=== PATIENT | male | born 1950 | race Caucasian/White ===

== ENCOUNTER 2018-11-16 20:50 | Emergency (ER) | payer OTHER ==
--- OUTSIDE RECORDS SUMMARY | 2018-11-16 20:53 | XMS REPORT | Clinical Summary ---
:1950 Author Organization [facility] Address [address] [place] [id number] Care Team Providers Name Role Phone Manuel Kirby MD Primary Care Provider Allergies Active Allergy Reactions Severity Noted Date Comments Ondansetron GI Intolerance 10/19/2015 Medications Medication Sig Dispensed Refills Start Date End Date Status ibuprofen Take 1 tablet 21 tablet 0 08/13/2018 09/12/2018 (ADVIL,MOTRIN) 600 MG (600 mg total) tablet by mouth 3 (three) times a day for 30 days. sodium,potassium,mag Take 2 Bottles 2 Bottle 0 10/15/2018 10/15/2018 sulfates (SUPREP (354 mL total) BOWEL PREP KIT) by mouth once 17.5-3.13-1.6 gram for 1 dose. recon soln polyethylene glycol Take 4,000 mL by 4000 mL 0 10/30/2018 10/30/2018 (GOLYTELY) mouth once for 1 236-22.74-6.74 -5.86 dose. gram solution Active Problems No known active problems Encounters Date Type Specialty Care Team Description 11/05/2018 Lab Lab Michael Alaniz MD 11/04/2018 Telephone Gastroenterology Michael Alaniz MD 10/15/2018 Telephone Gastroenterology Michael Alaniz MD 10/15/2018 Telephone Gastroenterology Michael Alaniz MD 10/08/2018 Telephone Gastroenterology Michael Alaniz MD 10/07/2018 Telephone Gastroenterology Michael Alaniz MD 09/24/2018 Telephone Gastroenterology Michael Alaniz MD 08/14/2018 [facility] 08/13/2018 Emergency Emergency Medicine Chris Bae, Rib contusion , MD jose carlos initial encounter (Primary Dx) 08/13/2018 Travel after 11/15/2017 Immunizations Name Administration Dates Next Due Tdap 08/13/2018 Social History Tobacco Use Types Packs/Day Years Used Date Light Tobacco Smoker Cigars Smokeless Tobacco: Never Used Alcohol Use Drinks/Week oz/Week Comments Yes 1-2 Cans of beer 1.0 - 2.0 occasional Sex Assigned at Date Recorded Not on file Job Start Date Occupation Industry Not on file Not on file Not on file Travel History Travel Start Travel End No recent travel history available. Last Filed Vital Signs Vital Sign Reading Time Taken Comments Blood Pressure 130/69 08/13/2018 3:36 PM CDT Pulse 46 08/13/2018 3:36 PM CDT Temperature 35.9 C (96.6 F) 08/13/2018 3:36 PM CDT Respiratory Rate 17 08/13/2018 3:36 PM CDT Oxygen Saturation 99% 08/13/2018 3:36 PM CDT Inhaled Oxygen Concentration - - Weight 72.6 kg (160 lb) 08/13/2018 2:21 PM CDT Height 172.7 cm (5' 8") 08/13/2018 2:21 PM CDT Body Mass Index 24.33 08/13/2018 2:21 PM CDT Plan of Treatment Health Maintenance Due Date Last Done Comments SHINGLES VACCINES (#1) 1998 65+ PNEUMOCOCCAL VACCINE (1 of 2 - PCV13) 2013 INFLUENZA VACCINE 10/10/2018 COLONOSCOPY SCREENING 11/05/2020 11/05/2018 Procedures Procedure Name Priority Date/Time Associated Diagnosis Comments SURGICAL PATHOLOGY Routine 11/05/2018 10:30 AM Results for this REQUEST CDT procedure are in the results section. XR RIBS W PA CHEST STAT 08/13/2018 2:47 PM Results for this LEFT CDT procedure are in the results section. after 11/15/2017 Results Surgical pathology request (11/05/2018 10:30 AM CDT) [facility] DEPARTMENT OF PATHOLOGY AND GENOMIC MEDICINE Surgical pathology See link below [facility] DEPARTMENT OF report for PDF Lab PATHOLOGY AND Report GENOMIC MEDICINE Result status This is Final [facility] DEPARTMENT OF Report for PATHOLOGY AND [id number] GENOMIC MEDICINE Specimen Performing Organization Address City/State/Zipcode Phone Number [facility] DEPARTMENT OF PATHOLOGY AND [address] [place] [address] GENOMIC MEDICINE XR Ribs W Pa Chest Left (08/13/2018 2:47 PM CDT) Specimen Narrative Performed At EXAMINATION:XR RIBS W PA CHEST LEFT [facility] CLINICAL HISTORY:Rib fx suspectedpost trauma, left lower rib pain after falling off a roof 5 days ago COMPARISON:April 04 IMPRESSION: No evidence of rib fracture No focal lesions present Lungs are clear Heart is nonenlarged [facility]-[id number] Procedure Note Interface, Radiology Results Incoming - 08/13/2018 3:17 PM CDT EXAMINATION: XR RIBS W PA CHEST LEFT CLINICAL HISTORY: Rib fx suspected post trauma, left lower rib pain after falling off a roof 5 days ago COMPARISON: April 04 IMPRESSION: No evidence of rib fracture No focal lesions present Lungs are clear Heart is nonenlarged [facility]-[id number] Performing Organization Address [facility] Phone Number [facility] [address] [place] [address] after 11/15/2017 Insurance Payer Benefit Plan / Subscriber ID Effective Phone Address Type Group Dates MEDICARE MEDICARE PART A xxxxxxxxxxx 2013-[place], [place] Medicare AND B ent COMMERCIAL MISC MISC COMMERCIAL xxxxxxxx 2018-[facility] Commercial ent (Home) [address] [place] [id number] Advance Directives For more information, please contact: [phone] Type Date Recorded Patient Precision Assembler Explanation Advance Directives, Living Will and Medical Power of Intelligence Operations
[2018-11-16] MEDS ORDERED: LIDOCAINE 1% MPF 5 ML VIAL ONE (21:12)
[2018-11-16] MEDS ORDERED: BUPIVACAINE 0.5% PF 10 ML VIAL ONE (21:13)
[2018-11-16] MEDS ORDERED: CEFAZOLIN SODIUM 1 GM/VIAL ONE (22:44)
[2018-11-16] MEDS ORDERED: WATER FOR INJ,STERILE 10 ML ONE (22:44)
--- NOTE | 2018-11-16 22:51 | ER ---
Nurse's Notes [facility] Name: Guerrero Cardona Jr Age: 68 yrs Sex: Male : 1950 Arrival Date: 11/16/2018 Time: 20:55 Bed 5 Private MD: Diagnosis: Laceration without foreign body of left index finger with damage to nail;Displaced fracture of distal phalanx of left index finger Presentation: 11/16 21:01 Presenting complaint: states: "I cut my fingers with a table saw yesterday. I went aj to [place] [facility] yesterday but they had a lot wait so I left" Reports that he cut his fingers at 1900 yesterday. Transition of care: patient was not received from another setting of care. Onset of symptoms was November 15, 2018 at 19:00. Risk Assessment: Do you want to hurt yourself or someone else? Patient reports no desire to harm self or others. Initial Sepsis Screen: Does the patient meet any 2 criteria? No. Patient's initial sepsis screen is negative. Does the patient have a suspected source of infection? No. Patient's initial sepsis screen is negative. Care prior to arrival: None. 21:01 Method Of Arrival: Ambulatory aj1 21:01 Acuity: PEPE 4 aj1 Triage Assessment: 21:03 General: Appears in no apparent distress. comfortable, Behavior is calm, cooperative, aj1 appropriate for age. Pain: Pain currently is 6 out of 10 on a pain scale. Neuro: Level of Consciousness is awake, alert, obeys commands. Cardiovascular: Patient's skin is warm and dry. Respiratory: Airway is patent Respiratory effort is even, unlabored, Respiratory pattern is regular, symmetrical. Historical: - Allergies: 21:03 No Known Allergies; aj1 - Home Meds: 21:03 None [Active]; aj1 - PMHx: 21:03 None; aj1 - Immunization history:: Flu vaccine is not up to date. - Social history:: Smoking status: Patient uses tobacco products, denies chronic smoking, but will smoke occasionally, cigars. - Ebola Screening: : Patient denies travel to an Ebola-affected area in the 21 days before illness onset. Screenin:24 Abuse screen: Denies threats or abuse. Denies injuries from another. Nutritional tl1 screening: No deficits noted. Tuberculosis screening: No symptoms or risk factors identified. Fall Risk None identified. Assessment: 21:22 General: Appears in no apparent distress. Behavior is calm, cooperative, appropriate tl1 for age. Pain: Complains of pain in dorsal aspect of distal phalanx of left index finger, dorsal aspect of distal phalanx of left middle finger and left index fingernail. Neuro: Level of Consciousness is awake, alert, obeys commands, Oriented to person, place, time, situation. Cardiovascular: Denies chest pain. Respiratory: Airway is patent Trachea midline Respiratory effort is even, unlabored, Respiratory pattern is regular, symmetrical, Breath sounds are clear bilaterally. GI: No signs and/or symptoms were reported involving the gastrointestinal system. : No signs and/or symptoms were reported regarding the genitourinary system. EENT: No signs and/or symptoms were reported regarding the EENT system. Injury Description: Laceration sustained to dorsal aspect of distal phalanx of left index finger, dorsal aspect of distal phalanx of left middle finger, palmar aspect of distal phalanx of left middle finger, palmar aspect of distal phalanx of left index finger, left index fingernail and left middle fingernail was sustained 1 day ago. moderate bleeding noted at this time. Vital Signs: 21:03 BP 116 / 75; Pulse 67; Resp 16; Temp 97.6; Pulse Ox 96% on R/A; Weight 69.85 kg (R); aj1 Height 5 ft. 8 in. (172.72 cm) (R); Pain 6/10; 23:03 BP 126 / 71; Pulse 61; Resp 17; Temp 97.8; Pulse Ox 100% ; Pain 0/10; tl1 21:03 Body Mass Index 23.42 (69.85 kg, 172.72 cm) aj1 ED Course: 20:55 Patient arrived in ED. mr 21:03 Triage completed. aj1 21:03 Arm band placed on Patient placed in an exam room. aj1 21:03 Patient has correct armband on for positive identification. Bed in low position. Call tl1 light in reach. Side rails up X 1. 21:04 April Sparrow FNP is [facility]. ut 21:04 Jose Moreno MD is Attending Physician. ut 21:52 Wound care: to laceration located on left middle fingernail and left index fingernail tl1 was soaked in Betadine solution, dressed with Vaseline gauze. 22:14 Alyssa Mcdonald, RN is Primary Nurse. tl1 22:25 Hand Left 3 View XRAY In Process Unspecified. EDMS 22:50 Farzad Deluca MD is Referral Physician. nh 23:02 No provider procedures requiring assistance completed. Patient did not have IV access tl1 during this emergency room visit. 23:02 Aluminum finger splint applied to left index fingernail. tl1 Administered Medications: 21:15 Drug: Lidocaine (1 %) 1 vials {Note: placed at bedside for POWER AND RECOVERY SUPERVISOR to adminiter.} Volume: 5 ak1 ml; Route: Infiltration; 23:04 Follow up: Response: No adverse reaction; Marked relief of symptoms; Pain is decreased tl1 21:16 Drug: Marcaine (0.5 %) 1 vials {Note: placed at bedside for POWER AND RECOVERY SUPERVISOR to adminiter.} Volume: ak1 10 ml; Route: Infiltration; 23:04 Follow up: Response: No adverse reaction; Marked relief of symptoms; Pain is decreased tl1 22:47 Drug: Ancef 1 grams Route: IM; Site: right gluteus; tl1 23:04 Follow up: Response: No adverse reaction; No change in condition tl1 23:15 Drug: [place] 10 mg-325 mg 1 tabs {Note: RASS 1.} Route: PO; tl1 23:16 Follow up: Response: No adverse reaction; Medication administered at discharge. tl1 Outcome: 22:51 Discharge ordered by MD. nh 23:15 Discharged to home ambulatory, with family. tl1 23:15 Condition: stable 23:15 Discharge instructions given to patient, family, Instructed on discharge instructions, follow up and referral plans. no driving heavy equipment, Demonstrated understanding of instructions, follow-up care, medications, Prescriptions given X 3. 23:16 Patient left the ED. tl1 Signatures: Dispatcher [employer] EDMS Lorraine Henry RN RN aj1 April Sparrow, PLAYGROUND DIRECTOR PLAYGROUND DIRECTOR xiomara ChavezaEileen mr Alyssa Mcdonald, RN RN tl1 Oneyda Farr RN RN ak1
--- NOTE | 2018-11-16 22:52 | EDPHYS ---
Physician Documentation [facility] Name: Guerrero Cardona Jr Age: 68 yrs Sex: Male : 1950 Arrival Date: 11/16/2018 Time: 20:55 Bed 5 Private MD: ED Physician Jose Moreno HPI: 11/16 22:45 This 68 yrs old Male presents to ER via Ambulatory with complaints of finger nh laceration. 22:45 Onset: The symptoms/episode began/occurred acutely, yesterday. Associated signs and nh symptoms: The patient has no apparent associated signs or symptoms. The patient has not experienced similar symptoms in the past. The patient has not recently seen a physician. Patient went to [facility] ER yesterday, but told there was a 5 hour wait, so he decided to wait until today. Patient cut first and second digit with a table saw. Historical: - Allergies: 21:03 No Known Allergies; aj1 - Home Meds: 21:03 None [Active]; aj1 - PMHx: 21:03 None; aj1 - Immunization history:: Flu vaccine is not up to date. - Social history:: Smoking status: Patient uses tobacco products, denies chronic smoking, but will smoke occasionally, cigars. - Ebola Screening: : Patient denies travel to an Ebola-affected area in the 21 days before illness onset. ROS: 22:45 Constitutional: Negative for fever, chills, and weight loss, Eyes: Negative for injury, nh pain, redness, and discharge, ENT: Negative for injury, pain, and discharge, Neck: Negative for injury, pain, and swelling, Cardiovascular: Negative for chest pain, palpitations, and edema, Respiratory: Negative for shortness of breath, cough, wheezing, and pleuritic chest pain, Abdomen/GI: Negative for abdominal pain, nausea, vomiting, diarrhea, and constipation, Back: Negative for injury and pain, : Negative for injury, bleeding, discharge, and swelling, Neuro: Negative for headache, weakness, numbness, tingling, and seizure. 22:45 MS/extremity: Positive for laceration, pain, swelling, tenderness, of the left index fingernail. Exam: 22:45 Constitutional: This is a well developed, well nourished patient who is awake, alert, nh and in no acute distress. Head/Face: Normocephalic, atraumatic. Eyes: Pupils equal round and reactive to light, extra-ocular motions intact. Lids and lashes normal. Conjunctiva and sclera are non-icteric and not injected. Cornea within normal limits. Periorbital areas with no swelling, redness, or edema. ENT: Nares patent. No nasal discharge, no septal abnormalities noted. Tympanic membranes are normal and external auditory canals are clear. Oropharynx with no redness, swelling, or masses, exudates, or evidence of obstruction, uvula midline. Mucous membranes moist. Neck: Trachea midline, no thyromegaly or masses palpated, and no cervical lymphadenopathy. Supple, full range of motion without nuchal rigidity, or vertebral point tenderness. No Meningismus. Chest/axilla: Normal chest wall appearance and motion. Nontender with no deformity. No lesions are appreciated. Cardiovascular: Regular rate and rhythm with a normal S1 and S2. No gallops, murmurs, or rubs. Normal PMI, no JVD. No pulse deficits. Respiratory: Lungs have equal breath sounds bilaterally, clear to auscultation and percussion. No rales, rhonchi or wheezes noted. No increased work of breathing, no retractions or nasal flaring. Abdomen/GI: Soft, non-tender, with normal bowel sounds. No distension or tympany. No guarding or rebound. No evidence of tenderness throughout. Back: No spinal tenderness. No costovertebral tenderness. Full range of motion. Neuro: Awake and alert, GCS 15, oriented to person, place, time, and situation. Cranial nerves II-XII grossly intact. Motor strength 5/5 in all extremities. Sensory grossly intact. Cerebellar exam normal. Normal gait. 22:45 Skin: injury, laceration(s), that can be described as contaminated, irregular, jagged, through and through, Complex laceration involving nailbed to right index finger - distal to the DIP. Also small laceration to right tip of second finger. Patient unable to bend index finger at DIP. Vital Signs: 21:03 BP 116 / 75; Pulse 67; Resp 16; Temp 97.6; Pulse Ox 96% on R/A; Weight 69.85 kg (R); aj1 Height 5 ft. 8 in. (172.72 cm) (R); Pain 6/10; 23:03 BP 126 / 71; Pulse 61; Resp 17; Temp 97.8; Pulse Ox 100% ; Pain 0/10; tl1 21:03 Body Mass Index 23.42 (69.85 kg, 172.72 cm) aj1 Procedures: 22:45 Splinting: Splint applied to left index finger using finger splint, applied by nurse. nh Examined by me, post splint application: neurovascular intact, 2+ distal pulses palpable, brisk capillary refill noted, Patient tolerated well. MDM: 21:04 Patient medically screened. al 22:45 Data reviewed: vital signs, nurses notes, radiologic studies, I have discussed the al patient's presentation/case with the attending Emergency Department Physician; and as a result, I will discharge patient. Counseling: I had a detailed discussion with the patient and/or guardian regarding: the historical points, exam findings, and any diagnostic results supporting the discharge/admit diagnosis, radiology results, the need for outpatient follow up, to return to the emergency department if symptoms worsen or persist or if there are any questions or concerns that arise at home. Physician consultation: Farzad Deluca MD was called at 22:49, was contacted at 22:49, and will see patient in office, in 2-3 days. 11/16 21:54 Order name: Hand Left 3 View XRAY al 11/16 23:15 Order name: Finger Splint; Complete Time: 23:15 tl1 Administered Medications: 21:15 Drug: Lidocaine (1 %) 1 vials {Note: placed at bedside for CARDBOARD INSERTER to adminiter.} Volume: 5 ak1 ml; Route: Infiltration; 23:04 Follow up: Response: No adverse reaction; Marked relief of symptoms; Pain is decreased tl1 21:16 Drug: Marcaine (0.5 %) 1 vials {Note: placed at bedside for CARDBOARD INSERTER to adminiter.} Volume: ak1 10 ml; Route: Infiltration; 23:04 Follow up: Response: No adverse reaction; Marked relief of symptoms; Pain is decreased tl1 22:47 Drug: Ancef 1 grams Route: IM; Site: right gluteus; tl1 23:04 Follow up: Response: No adverse reaction; No change in condition tl1 23:15 Drug: [place] 10 mg-325 mg 1 tabs {Note: RASS 1.} Route: PO; tl1 23:16 Follow up: Response: No adverse reaction; Medication administered at discharge. tl1 Disposition: 11/16/18 22:51 Discharged to Home. Impression: Laceration without foreign body of left index finger with damage to nail, Displaced fracture of distal phalanx of left index finger. - Condition is Stable. - Discharge Instructions: Finger Fracture, Laceration Care, Adult. - Prescriptions for Keflex 500 mg Oral Capsule - take 1 capsule by ORAL route every 6 hours for 10 days; 40 capsule. Tylenol- Codeine #3 300-30 mg Oral Tablet - take 2 tablets by ORAL route every 6 hours As needed; 30 tablet. Bactrim DS 800- 160 mg Oral Tablet - take 1 tablet by ORAL route every 12 hours for 10 days; 20 tablet. - Medication Reconciliation Form, Thank You Letter, Antibiotic Education, Prescription Opioid Use form. - Follow up: Farzad Deluca MD; When: 11/18/2018; Reason: Recheck today's complaints. - Problem is new. - Symptoms are unchanged. Signatures: Dispatcher [employer] EDCT Lorraine Henry RN RN aj1 April Sparrow, FINANCE EFFECTIVENESS MANAGER FINANCE EFFECTIVENESS MANAGER al Alyssa Mcdonald RN RN tl1 Oneyda Farr RN RN ak1 Corrections: (The following items were deleted from the chart) 22:51 22:51 11/16/2018 22:51 Discharged to Home. Impression: Laceration without foreign body nh of left index finger with damage to nail. Condition is Stable. Forms are Medication Reconciliation Form, Thank You Letter, Antibiotic Education, Prescription Opioid Use. Follow up: Farzad Deluca; When: 11/18/2018; Reason: Recheck today's complaints. Problem is new. Symptoms are unchanged. al 23:16 22:51 11/16/2018 22:51 Discharged to Home. Impression: Laceration without foreign body tl1 of left index finger with damage to nail; Displaced fracture of distal phalanx of left index finger. Condition is Stable. Forms are Medication Reconciliation Form, Thank You Letter, Antibiotic Education, Prescription Opioid Use. Follow up: Farzad Deluca; When: 11/18/2018; Reason: Recheck today's complaints. Problem is new. Symptoms are unchanged. al
[2018-11-16] MEDS ORDERED: HYDROCODONE/APAP 10/325 TAB ONE (23:08)
[2018-11-17 06:14] VITALS: BP 126/71; TEMP 97.8; O2SAT 100
--- NOTE | 2018-11-17 12:37 | RAD REPORT ---
EXAM DESCRIPTION: RAD - Hand Left 3 View - 11/16/2018 10:27 pm CLINICAL HISTORY: PAIN COMPARISON: No comparisons FINDINGS: Laceration with comminuted fracture of the distal phalanx of the second finger noted.
== END 2018-11-16 23:16 | disposition home or self-care (01) ==
LOC: ER 20:50
DX: S61.311A Laceration without foreign body of left index finger with damage to nail, initial encounter (principal); W31.2XXA Contact with powered woodworking and forming machines, initial encounter; Y93.89 Activity, other specified; Y92.9 Unspecified place or not applicable; Z72.0 Tobacco use
CPT/HCPCS: 73130; 96372; 99284; J0690

== ENCOUNTER 2019-07-09 22:41 | Emergency (ER) | payer OTHER ==
--- NOTE | 2019-07-10 00:08 | ER ---
Nurse's Notes [facility] Name: Guerrero Cardona Jr Age: 69 yrs Sex: Male : 1950 Arrival Date: 07/09/2019 Time: 22:44 Bed 2 Private MD: Diagnosis: Fall on and from ladder;Unspecified injury of head;Contusion of right elbow Presentation: 07/08 22:53 Chief complaint: Patient states: Fell off 8 foot ladder 3 hours [employer]. Landed on head. ll1 Reports hematoma to right top of head. Denies LOC. No blood thinners. Coronavirus screen: Proceed with normal triage. Patient denies a cough. Patient denies shortness of breath or difficulty breathing. Patient denies measured and/or subjective temperature greater than 100.4F prior to today's visit. Patient denies travel on a cruise ship or to a country the [facility] currently lists as an affected area. Patient denies contact with known and/or suspected case of COVID-19. Ebola Screen: Patient denies travel to an Ebola-affected area in the 21 days before illness onset. Initial Sepsis Screen: Does the patient meet any 2 criteria? No. Patient's initial sepsis screen is negative. Does the patient have a suspected source of infection? No. Patient's initial sepsis screen is negative. Risk Assessment: Do you want to hurt yourself or someone else? Patient reports no desire to harm self or others. Onset of symptoms was July 09, 2019. 22:53 Method Of Arrival: Ambulatory ll1 22:53 Acuity: PEPE 3 ll1 23:00 Care prior to arrival: None. Mechanism of Injury: Fall from standing position. Trauma ea event details: Injury occurred in the [facility]. Trauma Activation: Not Applicable Physician: ED Physician; Name: ; Notified At: ; Arrived At: Physician: General Surgeon; Name: ; Notified At: ; Arrived At: Physician: Radiology; Name: ; Notified At: ; Arrived At: Physician: Respiratory; Name: ; Notified At: ; Arrived At: Physician: Lab; Name: ; Notified At: ; Arrived At: Historical: - Allergies: 22:55 No Known Allergies; ll1 - PMHx: 22:55 None; ll1 - PSHx: 22:55 Knee surgery; rotator cuff repair; ll1 - Social history:: Smoking status: Patient reports the use of cigarette tobacco products, cigars, Patient uses alcohol, weekly. admits to "couple of beers" a day. Patient/guardian denies using street drugs. - Immunization history: Last tetanus immunization: - up to date. Screenin:58 Abuse screen: Denies threats or abuse. Nutritional screening: No deficits noted. ea Tuberculosis screening: No symptoms or risk factors identified. Fall Risk None identified. Primary Survey: 22:58 NO uncontrolled hemorrhage observed. Breathing/Chest: Respiratory pattern: regular, ea Respiratory effort: spontaneous, unlabored. Circulation: Skin color: pink. Disability Alert. Exposure/Environment: Obvious injury(ies) are noted at this time: hematoma to right side of head. 23:31 Reassessment Airway Airway Patent Breathing/Chest Respiratory pattern Regular ea Respiratory effort Spontaneous Unlabored. Assessment: 22:57 General: Appears in no apparent distress. Behavior is calm, cooperative, appropriate ea for age. Pain: Complains of pain in right side of the back of head. Neuro: Level of Consciousness is awake, alert, obeys commands, Oriented to person, place, time, situation. Respiratory: Airway is patent Respiratory effort is even, unlabored, Respiratory pattern is regular, symmetrical. Injury Description:. Injury Description: Bruise sustained to right side of the back of head. 23:46 Reassessment: Patient and/or family updated on plan of care and expected duration. Pain ea level reassessed. Patient is alert, oriented x 3, equal unlabored respirations, skin warm/dry/pink. Vital Signs: 22:53 BP 124 / 87; Pulse 66; Resp 18; Temp 97.9; Pulse Ox 97% ; Pain 0/10; ll1 [place] Coma Score: 22:53 Eye Response: spontaneous(4). Verbal Response: oriented(5). Motor Response: obeys ea commands(6). Total: 15. Trauma Score (Adult): 22:53 Eye Response: spontaneous(1); Verbal Response: oriented(1); Motor Response: obeys ea commands(2); Systolic BP: > 89 mm Hg(4); Respiratory Rate: 10 to 29 per min(4); Brenda Score: 15; Trauma Score: 12 ED Course: 22:44 Patient arrived in ED. cf2 22:48 Julian[facility] Lars[facility]C [facility]. snw 22:48 Joey Stanford MD is Attending Physician. snw 22:54 Brenda Loving, RN is Primary Nurse. ea 22:55 Triage completed. ll1 22:56 Arm band placed on Patient placed in an exam room, on a stretcher. ll1 22:59 Patient has correct armband on for positive identification. Bed in low position. Call ea light in reach. 22:59 Patient maintains SpO2 saturation greater than 95% on room air. Thermoregulation: warm ea blanket given to patient. 23:27 CT Head C Spine In Process Unspecified. EDMS 07/09 00:19 No provider procedures requiring assistance completed. Patient did not have IV access ea during this emergency room visit. 00:27 Elbow Right 3 View XRAY In Process Unspecified. EDMS Administered Medications: No medications were administered Intake: 00:20 PO: 0ml; Total: 0ml. ea Outcome: 00:06 Discharge ordered by MD. snw 00:19 Discharged to home ambulatory. ea 00:19 Condition: stable 00:19 Discharge instructions given to patient, Instructed on discharge instructions, follow up and referral plans. medication usage, Demonstrated understanding of instructions, follow-up care, medications, Prescriptions given X 2. 00:20 Patient's length of stay was not longer than 2 hours. ea 00:20 Patient left the ED. ea Signatures: Dispatcher [employer] EDDC Juliann Larsen FNP-C WARRANTY COORDINATOR-Csnw Brenda Loving, RN RN Leonel Baptiste cf2 Merlene Melgoza RN RN ll1 Corrections: (The following items were deleted from the chart) 07/08 22:57 22:53 Chief complaint: Patient states: Fell off 8 foot ladder 3 hours [employer]. Landed on ll1 head. Reports hematoma to right top of head. Denies LOC. ll1
--- NOTE | 2019-07-10 00:09 | EDPHYS ---
Physician Documentation [facility] Name: Guerrero Cardona Jr Age: 69 yrs Sex: Male : 1950 Arrival Date: 07/09/2019 Time: 22:44 Bed 2 Private MD: ED Physician Joey Satnford HPI: 07/08 22:54 This 69 yrs old Male presents to ER via Unassigned with complaints of Fall snw Injury, Head Injury With LOC-Adult. 22:54 Details of fall: The patient fell from a height, from a ladder, approximately 8 feet, snw freefall to occiput. Onset: The symptoms/episode began/occurred suddenly, 3 hour(s) ago. Associated injuries: The patient sustained injury to the head. Severity of symptoms: At their worst the symptoms were moderate, in the emergency department the symptoms have improved. The patient has not experienced similar symptoms in the past. yearly physical. denies LOC, denies vomiting. Historical: - Allergies: 22:55 No Known Allergies; ll1 - PMHx: 22:55 None; ll1 - PSHx: 22:55 Knee surgery; rotator cuff repair; ll1 - Social history:: Smoking status: Patient reports the use of cigarette tobacco products, cigars, Patient uses alcohol, weekly. admits to "couple of beers" a day. Patient/guardian denies using street drugs. - Immunization history: Last tetanus immunization: - up to date. ROS: 22:53 Constitutional: Negative for fever, chills, and weight loss, Eyes: Negative for injury, snw pain, redness, and discharge, ENT: Negative for injury, pain, and discharge, Neck: Negative for injury, pain, and swelling, Cardiovascular: Negative for chest pain, palpitations, and edema, Respiratory: Negative for shortness of breath, cough, wheezing, and pleuritic chest pain, Abdomen/GI: Negative for abdominal pain, nausea, vomiting, diarrhea, and constipation, Back: Negative for injury and pain, : Negative for injury, bleeding, discharge, and swelling, MS/Extremity: Negative for injury and deformity, Skin: Negative for injury, rash, and discoloration. 22:53 Neuro: Positive for dizziness, of the right side of the back of head. Exam: 22:53 Constitutional: This is a well developed, well nourished patient who is awake, alert, snw and in no acute distress. Eyes: Pupils equal round and reactive to light, extra-ocular motions intact. Lids and lashes normal. Conjunctiva and sclera are non-icteric and not injected. Cornea within normal limits. Periorbital areas with no swelling, redness, or edema. ENT: Nares patent. No nasal discharge, no septal abnormalities noted. Tympanic membranes are normal and external auditory canals are clear. Oropharynx with no redness, swelling, or masses, exudates, or evidence of obstruction, uvula midline. Mucous membranes moist. Neck: Trachea midline, no thyromegaly or masses palpated, and no cervical lymphadenopathy. Supple, full range of motion without nuchal rigidity, or vertebral point tenderness. No Meningismus. Chest/axilla: Normal chest wall appearance and motion. Nontender with no deformity. No lesions are appreciated. Cardiovascular: Regular rate and rhythm with a normal S1 and S2. No gallops, murmurs, or rubs. Normal PMI, no JVD. No pulse deficits. Respiratory: Lungs have equal breath sounds bilaterally, clear to auscultation and percussion. No rales, rhonchi or wheezes noted. No increased work of breathing, no retractions or nasal flaring. Abdomen/GI: Soft, non-tender, with normal bowel sounds. No distension or tympany. No guarding or rebound. No evidence of tenderness throughout. Back: No spinal tenderness. No costovertebral tenderness. Full range of motion. Skin: Warm, dry with normal turgor. Normal color with no rashes, no lesions, and no evidence of cellulitis. MS/ Extremity: Pulses equal, no cyanosis. Neurovascular intact. Full, normal range of motion. Neuro: Awake and alert, GCS 15, oriented to person, place, time, and situation. Cranial nerves II-XII grossly intact. Motor strength 5/5 in all extremities. Sensory grossly intact. Cerebellar exam normal. Normal gait. Psych: Awake, alert, with orientation to person, place and time. Behavior, mood, and affect are within normal limits. 22:53 Head/face: Noted is hematoma, swelling, that is moderate, of the right side of the back of head. Vital Signs: 22:53 BP 124 / 87; Pulse 66; Resp 18; Temp 97.9; Pulse Ox 97% ; Pain 0/10; ll1 [place] Coma Score: 22:53 Eye Response: spontaneous(4). Verbal Response: oriented(5). Motor Response: obeys ea commands(6). Total: 15. Trauma Score (Adult): 22:53 Eye Response: spontaneous(1); Verbal Response: oriented(1); Motor Response: obeys ea commands(2); Systolic BP: > 89 mm Hg(4); Respiratory Rate: 10 to 29 per min(4); Brenda Score: 15; Trauma Score: 12 MDM: 23:06 Patient medically screened. snw 07/09 00:09 Data reviewed: vital signs, nurses notes. Data interpreted: Pulse oximetry: on room air snw is 97 %. Interpretation: normal. Counseling: I had a detailed discussion with the patient and/or guardian regarding: the historical points, exam findings, and any diagnostic results supporting the discharge/admit diagnosis, radiology results, the need for outpatient follow up, to return to the emergency department if symptoms worsen or persist or if there are any questions or concerns that arise at home. Special discussion: I have referred the patient to see his PCP for further evaluation of high blood pressure. Based on the patient's history, exam and DX evaluation, there is no indication for emergent intervention or inpatient [place]. It is understood by the patient/guardian that if the SXs persist or worsen they need to return immediately for re-evaluation. Based on the history and exam findings, there is no indication for further emergent testing or inpatient evaluation. I discussed with the patient/guardian the need to see the primary care provider for further evaluation of the symptoms. 07/08 22:53 Order name: CT Head C Spine snw 07/08 23:26 Order name: Elbow Right 3 View XRAY snw Administered Medications: No medications were administered Disposition: 06:42 Co-signature as Attending Physician, Joey Stanford MD I agree with the assessment and tw4 plan of care. Disposition: 07/10/19 00:06 Discharged to Home. Impression: Fall on and from ladder, Unspecified injury of head, Contusion of right elbow. - Condition is Stable. - Discharge Instructions: Head Injury, Adult, Fall Prevention in the Home, Elbow Contusion, [id number]. - Prescriptions for Diclofenac Sodium 75 mg Oral Tablet, Delayed Release (E.C.) - take 1 tablet by ORAL route 2 times per day; 30 tablet. orphenadrine citrate 100 mg Oral Tablet Sustained Release - take 1 tablet by ORAL route 2 times per day As needed; 20 tablet. - Work release form, Medication Reconciliation Form, Thank You Letter, Antibiotic Education, Prescription Opioid Use form. - Follow up: Emergency Department; When: As needed; Reason: Worsening of condition. Follow up: Private Physician; When: 2 - 3 days; Reason: Recheck today's complaints, Continuance of care, Re-evaluation by your physician. - Problem is new. - Symptoms have improved. Signatures: Dispatcher [employer] EDMS Juliann Larsen, JAY-C INDUSTRIAL ENGINEERING DIRECTOR-Csnw Brenda Loving, RN RN Joey Lake MD MD tw4 Merlene Melgoza RN RN ll1 Corrections: (The following items were deleted from the chart) 00:20 00:06 07/10/2019 00:06 Discharged to Home. Impression: Fall on and from ladder; ea Unspecified injury of head; Contusion of right elbow. Condition is Stable. Forms are Medication Reconciliation Form, Thank You Letter, Antibiotic Education, Prescription Opioid Use. Follow up: Emergency Department; When: As needed; Reason: Worsening of condition. Follow up: Private Physician; When: 2 - 3 days; Reason: Recheck today's complaints, Continuance of care, Re-evaluation by your physician. Problem is new. Symptoms have improved. snw
--- NOTE | 2019-07-10 00:11 | RAD REPORT ---
EXAM DESCRIPTION: RAD - Elbow Right 3 View - 07/10/2019 12:02 am CLINICAL HISTORY: Right elbow pain status post injury FINDINGS: No fracture or dislocation is seen. Two small radiopaque densities lie within medial soft tissues. Largest measures 1 millimeter
--- NOTE | 2019-07-10 11:43 | RAD REPORT ---
EXAM DESCRIPTION: CT - Head C Spine Mpr Wo Con - 07/10/2019 4:59 am CLINICAL HISTORY: SMASH INJURY COMPARISON: None. TECHNIQUE: CT Head and Cervical spine WO contrast on 07/09/2019 10:53 PM CDT This exam was performed according to our departmental dose-optimization program, which includes autom ated exposure control, adjustment of the mA and/or kV according to patient size and/or use of iterati ve reconstruction technique. FINDINGS: Brain: There is no acute hemorrhage, mass effect or midline shift. Scott-white differentiat ion is preserved. There is no hydrocephalus. There is no significant volume loss for age. There is a moderate right parietal scalp contusion. The calvarium is intact. Orbits and globes are unremarkable. The paranasal sinuses are clear. Mastoid air cells are clear. Cervical Spine: There is no acute fracture. Alignment is anatomic. There is moderate diffuse facet ar thritis. There is mild narrowing of the C4-5 disc. Vertebral body heights are preserved. Soft tissues are unre markable. IMPRESSION: No acute fracture or intracranial hemorrhage. Electronically signed by: Adair Bell MD 07/09/2019 11:49 PM CDT Due to temporary technical issues with the PACS/Fluency reporting system, reports are being signed by the in house radiologist as a courtesy to ensure prompt reporting. The interpreting radiologist is f cosmoly responsible for the content of the report.
== END 2019-07-10 00:20 | disposition home or self-care (01) ==
LOC: ER 22:41
DX: S09.90XA Unspecified injury of head, initial encounter (principal); S50.01XA Contusion of right elbow, initial encounter; W11.XXXA Fall on and from ladder, initial encounter; Y93.9 Activity, unspecified; Y92.9 Unspecified place or not applicable; Z72.0 Tobacco use
CPT/HCPCS: 70450; 72125; 99284

== ENCOUNTER 2019-08-07 16:51 | Emergency (ER) | payer OTHER ==
[2019-08-07] MEDS ORDERED: ONDANSETRON 4 MG/2 ML VIAL ONE (17:05)
[2019-08-07] MEDS ORDERED: MORPHINE 4 MG/ML SYR ONE ×2 (17:05→18:48)
[2019-08-07 17:13] LABS: Absolute Lymphocytes (CBC) 0.6 K/uL (0.7-4.9); Basophils % 0.4 % (0-1.3); Hematocrit 49.3 % (39.6-49.0); MPV 8.6 fL (7.6-11.3); RBC Red Blood Cell Count 5.23 M/uL (4.33-5.43)
[2019-08-07 17:42] LABS: ALT/SGPT 31 U/L (12-78); AST/SGOT 33 U/L (15-37); Albumin 4.4 g/dL (3.4-5.0); Alkaline Phosphatase 62 U/L (45-117); BUN Blood Urea Nitrogen 31 mg/dL (7-18); Bicarbonate 27 mmol/L (21-32); Bilirubin Direct 0.3 mg/dL (0-0.2); Bilirubin Total 1.3 mg/dL (0.2-1.0); Glucose Level 132 mg/dL (74-106); Lipase 112 U/L (73-393); Potassium 4.4 mmol/L (3.5-5.1); Protein, Total 8.4 g/dL (6.4-8.2); Sodium Level 139 mmol/L (136-145); Troponin (Emerg Dept Use Only) < 0.02 ng/mL (0.0-0.045)
--- NOTE | 2019-08-07 18:42 | RAD REPORT ---
EXAM DESCRIPTION: CT - Abdomen Pelvis W Contrast - 08/07/2019 6:20 pm CLINICAL HISTORY: abdominal pain COMPARISON: No comparisons TECHNIQUE: Biphasic, helical CT imaging of the abdomen and pelvis was performed following 100 ml non -ionic IV contrast. No oral contrast given. All CT scans are performed using dose optimization technique as appropriate and may include automated exposure control or mA/KV adjustment according to patient size. FINDINGS: No suspicious findings in the lung bases. Liver shows no suspicious finding. A small 10 millimeter subcapsular lateral right lobe lesion is pro bably a hemangioma. No worrisome liver parenchymal process. Portal vein is normal. Spleen and pancrea s show no suspicious findings. Gallbladder and biliary tree are also without suspicious finding. Symmetric renal function is seen with no hydronephrosis or suspicious renal mass. No pyelonephritis o r acute parenchymal process. Multiple bilateral parapelvic cysts are present. No adrenal abnormalitie s. No bladder abnormality. Stomach is distended by retained fluid content. No gastric wall thickening or mass. No abnormality of the duodenum. Multiple distended and dilated fluid-filled small bowel loops are present involving al most the entire ileum and jejunum. Distal ileum anastomotic site is present. The ileum between anasto mosis and ileocecal valve is normal in diameter. Air and stool are throughout the colon which is not decompressed. Stool volume is moderate. An acute colon process is not seen. Distal rectum anastomosis shows no suspicious finding. A specific mass or wall thickening is not seen at the distal ileum anastomosis. No free air or pneuma tosis. No abnormal free fluid collection. Fat filled inguinal hernias are present. Very small hernia defect in the right mid abdomen may be from an old ostomy site. No bowel involvement at this abdomin al wall defect. No suspicious bony findings. IMPRESSION: Multiple distended and dilated fluid-filled small bowel loops involving most of the ileu m and jejunum. There is transition at a distal ileum anastomotic site potentially a partial obstruction versus promi nent ileus/ enteritis. No acute colon finding. Colon is not decompressed. No free air, abscess or other surgically emergent finding.
--- NOTE | 2019-08-07 18:53 | RAD REPORT ---
EXAM DESCRIPTION: RAD - Abdomen Acute Series - 08/07/2019 6:38 pm CLINICAL HISTORY: ABD PAIN COMPARISON: Abdomen Pelvis W Contrast dated 08/07/2019 FINDINGS: Chest was not fully imaged. Upper lung gaitan are obscured. Mid and lower lung gaitan are clear of acute finding. Heart size and pulmonary vasculature are normal. No pleural effusion, pneumot horax or other acute cardiopulmonary process seen. Air and stool are scattered throughout nondilated colon. Stomach is not dilated. Multiple prominent s mall bowel loops are present matching the CT study. No free air or pneumatosis. Contrast is present w ithin the system from earlier CT study. Focal contrast in the right upper quadrant is believed to be contrast extending into a dilated calyx or a cystic communicates with the calyx system. This is not a significant finding. Contrast collects in the urinary bladder. No other suspicious for significant findings. IMPRESSION: Prominent small bowel pattern matching the CT study. Currently an ileus or enteritis is favored over small bowel obstruction. Correlation is needed with c linical presentation with follow-up as warranted.
[2019-08-07 19:48] VITALS: TEMP 98.2
[2019-08-07 19:54] VITALS: BP 119/63; O2SAT 96
--- OUTSIDE RECORDS SUMMARY | 2019-08-07 21:14 | XMS REPORT | Clinical Summary ---
:1950 Author Organization [facility] Address [address] [place] [id number] Care Team Providers Name Role Phone Manuel Kirby MD Primary Care Provider [phone] Allergies Active Allergy Reactions Severity Noted Date Comments Ondansetron GI Intolerance 10/19/2015 Medications Medication Sig Dispensed Refills Start Date End Date Status ibuprofen Take 1 tablet 21 tablet 0 08/13/2018 09/12/2018 Expi red (ADVIL,MOTRIN) 600 MG (600 mg total) tablet by mouth 3 (three) times a day for 30 days. sodium,potassium,mag Take 2 Bottles 2 Bottle 0 10/15/201808/2018 sulfates (SUPREP (354 mL total) BOWEL PREP KIT) by mouth once 17.5-3.13-1.6 gram for 1 dose. recon soln polyethylene glycol Take 4,000 mL by 4000 mL 0 10/30/2018 (GOLYTELY) mouth once for 1 236-22.74-6.74 -5.86 dose. gram solution Active Problems No known active problems Encounters Date Type Specialty Care Team Description 11/05/2018 Lab Lab Michael Alaniz MD 11/04/2018 Telephone Gastroenterology Michael Alaniz MD 10/15/2018 Telephone Gastroenterology Michael Alaniz MD 10/15/2018 Telephone Gastroenterology Michael Alaniz MD 10/08/2018 Telephone Gastroenterology Michael Alaniz MD 10/07/2018 Telephone Gastroenterology Michael Alaniz MD 09/24/2018 Telephone Gastroenterology Mcihael Alaniz MD 08/14/2018 Telephone Gastroenterology Effie Forte MA 08/13/2018 Emergency Emergency Medicine CatalinoChris yeung R ib contusion, jose carlos, initial encount er (Primary Dx) 08/13/2018 Travel after 08/06/2018 Immunizations Name Administration Dates Next Due Tdap [...] of 2 - PCV13) 2013 INFLUENZA VACCINE 10/11/2019 COLONOSCOPY SCREENING 11/05/2020 11/05/2018 Procedures Procedure Name Priority Date/Time Associated Diagnosis Comme nts SURGICAL PATHOLOGY Routine 11/05/2018 10:30 AM Re sults for this REQUEST CDT procedure are i n the results section. XR RIBS W PA CHEST STAT 08/13/2018 2:47 PM Re sults for this LEFT CDT procedure are i n the results section. after 08/06/2018 Results Surgical pathology request (11/05/2018 10:30 AM CDT) [facility] DEPARTMENT OF PATHOLOGY AND GENOMIC MEDICINE Surgical pathology See link below [facility] DEPARTMENT OF report for PDF Lab PATHOLOGY AND Report GENOMIC MEDICINE Result status This is Final [facility] DEPARTMENT OF Report for PATHOLOGY AND [id number] GENOMIC MEDICINE Specimen Performing Organization Address City/[facility]/Zipcode Phone Number [facility] DEPARTMENT OF PATHOLOGY AND [address] [place], [place] [address] GENOMIC MEDICINE XR Ribs W Pa Chest Left (08/13/2018 2:47 PM CDT) Specimen Narrative Performed At EXAMINATION: XR RIBS W PA CHEST LEFT [facility] CLINICAL HISTORY: Rib fx suspected post trauma, le ft lower rib pain after falling off a roof 5 days ago COMPARISON: April 04 IMPRESSION: No evidence of rib fracture No focal lesions present Lungs are clear Heart is nonenlarged [facility]-[id number] Procedure Note Interface, Radiology Results Incoming - 08/13/2018 3:17 PM CDT EXAMINATION: XR RIBS W PA CHEST LEFT CLINICAL HISTORY: Rib fx suspected pos t trauma, left lower rib pain after falling off a roof 5 days ago COMPARISON: April 04 IMPRESSION: No evidence of rib fracture No focal lesions present Lungs are clear Heart is nonenlarged [facility]-[id number] Performing Organization Address [facility] Phone Number [facility] [address] [place] [address] after 08/06/2018 Insurance Payer Benefit Plan / Subscriber ID Effective Phone Address T ype Group Dates MEDICARE MEDICARE PART A xxxxxxxxxxx 2013-[place], [place] Medicare AND B ent COMMERCIAL MISC MISC COMMERCIAL xxxxxxxx 2018-[facility] [address] ([address]) [address] [place] [id number] Advance Directives For more information, please contact: [phone] Type Date Recorded Patient Home Care Manager Explanati on Advance Directives, Living Will and Medical Power of Mechanical Development Engineer
--- NOTE | 2019-08-11 16:14 | EDPHYS ---
Physician Documentation [facility] Name: Guerrero Cardona Jr Age: 69 yrs Sex: Male : 1950 Arrival Date: 08/07/2019 Time: 16:53 Bed 2 Private MD: ED Physician Jarred Herbert HPI: 08/06 16:54 This 69 yrs old Male presents to ER via Wheelchair with complaints of m Abdominal Pain, Diarrhea. 16:54 The patient presents with abdominal pain. Onset: The symptoms/episode began/occurred jmm acutely, at 10:00. The symptoms do not radiate. Associated signs and symptoms: Pertinent positives: nausea and vomiting. The symptoms are described as achy, crampy, sharp. The patient has experienced similar episodes in the past. This is a 69 year old male with a history of bowel obstuction that presents to the ED with complaints of lower abdominal pain beginning this morning at 10 am. Patient states having multiple episodes of vomiting. Pain is simialr to previous bowel obstructions. Denies fever. . Historical: - Allergies: 16:56 No Known Allergies; ll1 - PSHx: 16:56 Knee surgery; rotator cuff repair; ll1 18:09 Colon; sv - Immunization history:: Adult Immunizations. - Social history:: Smoking status: . ROS: 16:54 Constitutional: Negative for fever, chills, and weight loss, Cardiovascular: Negative jmm for chest pain, palpitations, and edema, Respiratory: Negative for shortness of breath, cough, wheezing, and pleuritic chest pain. 16:54 Abdomen/GI: Positive for abdominal pain, nausea and vomiting. 16:54 All other systems are negative. Exam: 16:54 Head/Face: atraumatic. Eyes: EOMI, no conjunctival erythema appreciated ENT: Moist jmm Mucus Membranes Neck: Trachea midline, Supple Chest/axilla: Normal chest wall appearance and motion. Cardiovascular: Regular rate and rhythm. No edema appreciated Respiratory: Normal respirations, no respiratory distress appreciated 16:54 Back: Normal ROM Skin: General appearance color normal MS/ Extremity: Moves all extremities, no obvious deformities appreciated, no edema noted to the lower extremities Neuro: Awake and alert, normal gait Psych: Behavior is normal, Mood is normal, Patient is cooperative and pleasant 16:54 Constitutional: The patient appears alert, awake, in obvious pain. 16:54 Abdomen/GI: abdomen diffusely ttp, soft. Vital Signs: 16:53 Resp 24; Pain 10/10; ll1 16:55 BP 146 / 84; Pulse 57; Resp 22; Temp 98.2; Pulse Ox 100% on R/A; kj1 17:13 Pulse Ox 82% on R/A; sv 17:57 BP 132 / 75; Pulse 64; Resp 16; Pulse Ox 99% on 3 lpm NC; sv 18:04 Pain 4/10; sv 18:46 BP 130 / 73; Pulse 63; Resp 18; Pulse Ox 99% ; sv 19:25 BP 119 / 63; Pulse 70; Resp 17 S; Pulse Ox 96% on R/A; jd3 17:13 Pt placed on O2 \T\ 3L per NC. O2 sat up to 98%. sv MDM: 17:08 Patient medically screened. [facility] 19:42 Data reviewed: vital signs, nurses notes, lab test result(s), radiologic studies, CT [facility] scan, plain films. Counseling: I had a detailed discussion with the patient and/or guardian regarding: the historical points, exam findings, and any diagnostic results supporting the discharge/admit diagnosis, lab results, radiology results, the need for further work-up and treatment in the hospital. Response to treatment: the patient's symptoms have markedly improved after treatment. Refusal of service: The patient/guardian displays adequate decision making capability and despite a detailed discussion of alternatives, benefits, risks, and consequences refuses: Admission to the hospital for further work-up and treatment. 08/06 16:54 Order name: Basic Metabolic Panel; Complete Time: 17:51 [facility] 08/06 16:54 Order name: CBC with Diff; Complete Time: 17:51 [facility] 08/06 16:54 Order name: Hepatic Function; Complete Time: 17:51 [facility] 08/06 16:54 Order name: Lipase; Complete Time: 17:51 [facility] 08/06 16:54 Order name: Troponin (emerg Dept Use Only); Complete Time: 17:51 [facility] 08/06 16:54 Order name: Lactate; Complete Time: 17:51 [facility] 08/06 16:54 Order name: IV Saline Lock; Complete Time: 17:01 [facility] 08/06 16:54 Order name: Labs collected and sent; Complete Time: 17:01 [facility] 08/06 17:03 Order name: Abdomen Acute Series XRAY; Complete Time: 19: [facility] 08/06 17:52 Order name: CT Abd/Pelvis - IV Contrast Only; Complete Time: : [facility] Administered Medications: 17:00 Drug: morphine 4 mg Route: IVP; Site: left antecubital; hb 18:04 Follow up: Pain 4/10 Adult; Response: No adverse reaction; Marked relief of symptoms; sv Pain is decreased; RASS: Light sedation (-2) 17:01 Drug: Zofran (Ondansetron) 4 mg Route: IVP; Site: left antecubital; hb 18:04 Follow up: Response: No adverse reaction sv 18:04 Drug: NS 0.9% 1000 ml Route: IV; Rate: 1 bolus; Site: left antecubital; sv 19:00 Follow up: Response: No adverse reaction; IV Status: Completed infusion; IV Intake: jd3 1000ml 18:45 Drug: morphine 4 mg {Note: rass1.} Route: IVP; Site: left antecubital; sv 19:28 Follow up: Response: No adverse reaction; RASS: Alert and Calm (0) jd3 Disposition: 08/07/19 19:28 Discharged to Home. Impression: Bowel Obstruction. - Condition is Stable. - Discharge Instructions: Small Bowel Obstruction. - Medication Reconciliation Form, Thank You Letter, Antibiotic Education, Prescription Opioid Use form. - Follow up: Private Physician; When: 2 - 3 days; Reason: Recheck today's complaints, Continuance of care, Re-evaluation by your physician. Addendum: 08/09/2019 07:57 Co-signature as Attending Physician, Jarred Herbert MD I agree with the assessment and k dr plan of care. 07:57 Co-signature as Attending Physician, Jarred Herbert MD I agree with the assessment and k dr plan of care. Signatures: Dispatcher [employer] Loulou Jang RN RN sv Rittger, Kevin, MD MD kdr Mickail, Joel, PA PA jmm Baxter, Heather, RN RN hb Davies, Jonathon, RN RN jMerlene Carbajal RN RN ll1 Corrections: (The following items were deleted from the chart) 05/28 19:28 19:07 NG Tube ordered. sunshine jd3 19:39 19:28 08/07/2019 19:28 Discharged to Home. Impression: Bowel Obstruction. Condition is jd3 Stable. Forms are Medication Reconciliation Form, Thank You Letter, Antibiotic Education, Prescription Opioid Use. Follow up: Private Physician; When: 2 - 3 days; Reason: Recheck today's complaints, Continuance of care, Re-evaluation by your physician. sunshine
--- NOTE | 2019-08-11 16:14 | ER ---
Nurse's Notes [facility] Name: Guerrero Cardona Jr Age: 69 yrs Sex: Male : 1950 Arrival Date: 08/07/2019 Time: 16:53 Bed 2 Private MD: Diagnosis: Bowel Obstruction Presentation: 08/06 16:53 Chief complaint: Patient states: Rolling on ER lobby ground, refusing to get up into ll1 wheelchair. Screaming of abdominal pain. Lifted off ER lobby floor. Taken back to ER2 for severe abdominal pain. "My bowel is gonna burst!". Coronavirus screen: Proceed with normal triage. Patient denies a cough. Patient denies shortness of breath or difficulty breathing. Patient denies measured and/or subjective temperature greater than 100.4F prior to today's visit. Patient denies travel on a cruise ship or to a country the [facility] currently lists as an affected area. Patient denies contact with known and/or suspected case of COVID-19. Ebola Screen: Patient denies travel to an Ebola-affected area in the 21 days before illness onset. Initial Sepsis Screen: Does the patient have a suspected source of infection? Yes: Acute abdominal pain. Risk Assessment: Do you want to hurt yourself or someone else? Patient reports no desire to harm self or others. Onset of symptoms was August 07, 2019. 16:53 Method Of Arrival: Wheelchair ll1 16:53 Acuity: PEPE 2 ll1 17:00 Initial Sepsis Screen: Does the patient meet any 2 criteria? RR > 20 per min. No. sv Patient's initial sepsis screen is negative. Does the patient have a suspected source of infection? Yes: Acute abdominal pain. Triage Assessment: 16:53 General: Appears distressed, uncomfortable, Behavior is appropriate for age, agitated, sv restless. Pain: Complains of pain in abdomen Pain currently is 10 out of 10 on a pain scale. Pain began "this morning" Is continuous, Noted to be grimacing, guarding, moaning, restless. Neuro: Level of Consciousness is awake, alert, obeys commands, Oriented to person, place, time, situation, Moves all extremities. Full function Gait is steady, Speech is normal. Cardiovascular: Patient's skin is warm and dry. Respiratory: Airway is patent Respiratory effort is even, unlabored, Respiratory pattern is regular, symmetrical. GI: Abdomen is flat, Abdomen is tender to palpation X 4 quads. Reports lower abdominal pain, upper abdominal pain, cramping, diarrhea, nausea, vomiting. Derm: Skin is normal. Musculoskeletal: Range of motion: intact in all extremities. Historical: - Allergies: 16:56 No Known Allergies; ll1 - PSHx: 16:56 Knee surgery; rotator cuff repair; ll1 18:09 Colon; sv - Immunization history:: Adult Immunizations. - Social history:: Smoking status: . Screenin:00 Abuse screen: Denies threats or abuse. Denies injuries from another. Nutritional sv screening: No deficits noted. Tuberculosis screening: No symptoms or risk factors identified. Fall Risk None identified. Assessment: 18:07 Reassessment: Patient appears in no apparent distress at this time. Patient and/or sv family updated on plan of care and expected duration. Pain level reassessed. Patient is alert, oriented x 3, equal unlabored respirations, skin warm/dry/pink. Pt noted to be sleeping on entry to the room. Patient states symptoms have improved. 18:46 Reassessment: Patient appears in no apparent distress at this time. Patient and/or sv family updated on plan of care and expected duration. Pain level reassessed. Patient is alert, oriented x 3, equal unlabored respirations, skin warm/dry/pink. Pt reports pain improved a lot from the medicine earlier. 19:26 Reassessment: Tristan LAST at bedside discussing plan of care. pt refusing admission. jd3 19:26 General: Appears in no apparent distress. comfortable, Behavior is calm, cooperative, jd3 appropriate for age. Pain: Denies pain. Neuro: Level of Consciousness is awake, alert, obeys commands, Oriented to person, place, time, situation. Cardiovascular: Capillary refill < 3 seconds Patient's skin is warm and dry. Respiratory: Airway is patent Respiratory effort is even, unlabored, Respiratory pattern is regular, symmetrical. GI: Abdomen is round non-distended, Reports pain on arrival. pt reporting relieved pain at this time. : No signs and/or symptoms were reported regarding the genitourinary system. EENT: No signs and/or symptoms were reported regarding the EENT system. Derm: Skin is intact, Skin is dry, Skin is normal, Skin temperature is warm. Musculoskeletal: Circulation, motion, and sensation intact. Range of motion: intact in all extremities. Vital Signs: 16:53 Resp 24; Pain 10/10; ll1 16:55 BP 146 / 84; Pulse 57; Resp 22; Temp 98.2; Pulse Ox 100% on R/A; kj1 17:13 Pulse Ox 82% on R/A; sv 17:57 BP 132 / 75; Pulse 64; Resp 16; Pulse Ox 99% on 3 lpm NC; sv 18:04 Pain 4/10; sv 18:46 BP 130 / 73; Pulse 63; Resp 18; Pulse Ox 99% ; sv 19:25 BP 119 / 63; Pulse 70; Resp 17 S; Pulse Ox 96% on R/A; jd3 17:13 Pt placed on O2 \\T\\ 3L per NC. O2 sat up to 98%. sv ED Course: 16:53 Patient arrived in ED. bd 16:54 Tristan Pastor PA is PHCP. jmm 16:54 Jarred Herbert MD is Attending Physician. [facility] 16:55 Triage completed. ll1 16:55 Inserted saline lock: 18 gauge in right antecubital area, using aseptic technique. sv Blood collected. Flushed right antecubital with 5 ml normal saline. 16:56 Arm band placed on Patient placed in an exam room, on a stretcher. ll1 16:58 Inserted saline lock: 18 gauge in left antecubital area, using aseptic technique. hb 17:00 Patient has correct armband on for positive identification. Placed in gown. Bed in low sv position. Call light in reach. Side rails up X2. Pulse ox on. NIBP on. Door closed. Head of bed elevated. 17:09 Loulou Yeung, KENAN is Primary Nurse. sv 18:[address] Scan, Awaiting for x-ray. sv 18:20 CT Abd/Pelvis - IV Contrast Only In Process Unspecified. EDMS 18:28 X-ray(s) taken. sv 18:40 Abdomen Acute Series XRAY In Process Unspecified. EDMS 18:46 Awaiting radiology results. Awaiting re-evaluation by ER provider. sv 18:59 Primary Nurse role handed off by Loulou Yeung, KENAN sv 18:59 Report given to Oscar GRAYSON and Fernandez GRAYSON. sv 19:24 Oscar Mckinney, RN is Primary Nurse. jd3 19:38 No provider procedures requiring assistance completed. IV discontinued, intact, jd3 bleeding controlled, No redness/swelling at site. Pressure dressing applied. Administered Medications: 17:00 Drug: morphine 4 mg Route: IVP; Site: left antecubital; hb 18:04 Follow up: Pain 4/10 Adult; Response: No adverse reaction; Marked relief of symptoms; sv Pain is decreased; RASS: Light sedation (-2) 17:01 Drug: Zofran (Ondansetron) 4 mg Route: IVP; Site: left antecubital; hb 18:04 Follow up: Response: No adverse reaction sv 18:04 Drug: NS 0.9% 1000 ml Route: IV; Rate: 1 bolus; Site: left antecubital; sv 19:00 Follow up: Response: No adverse reaction; IV Status: Completed infusion; IV Intake: jd3 1000ml 18:45 Drug: morphine 4 mg {Note: rass1.} Route: IVP; Site: left antecubital; sv 19:28 Follow up: Response: No adverse reaction; RASS: Alert and Calm (0) jd3 Intake: 19:00 IV: 1000ml; Total: 1000ml. jd3 Outcome: 19:28 Discharge ordered by . usman 19:38 Discharged to home ambulatory, with family. jd3 19:38 Condition: stable 19:38 Discharge instructions given to patient, Instructed on discharge instructions, follow up and referral plans. Demonstrated understanding of instructions, follow-up care. 19:39 Patient left the ED. jd3 Signatures: Dispatcher [employer] EDMS Patti Otoole Stephanie RN KENAN sv Tristan Pastor PA PA jmm Baxter, Heather, RN RN Oscar Mckinney RN RN jd3 Jackson, Kandis kj1 Merlene Melgoza RN RN ll1 Corrections: (The following items were deleted from the chart) 18:07 18:07 Reassessment: Patient appears in no apparent distress at this time. Patient sv and/or family updated on plan of care and expected duration. Pain level reassessed. Patient is alert, oriented x 3, equal unlabored respirations, skin warm/dry/pink. Patient states symptoms have improved. sv 19:28 19:26 Reassessment: Tristan LAST at bedside discussing plan of care. jd3 jd3
== END 2019-08-07 19:39 | disposition home or self-care (01) ==
LOC: ER 16:51
DX: K56.609 Unspecified intestinal obstruction, unspecified as to partial versus complete obstruction (principal); R11.2 Nausea with vomiting, unspecified
CPT/HCPCS: 96361; 85025; 80048; 36415; 80076; 83605; 84484; 83690; 74177; 74022; 96375; 96374; 99284; Q9967; J2405